=== PATIENT | male | born 1975 | race Caucasian/White ===

== ENCOUNTER 2018-12-16 15:07 | Emergency (ER) | payer MEDICAID ==
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
[2018-12-16] MEDS ORDERED: HYDROCODONE/APAP 7.5/325MG TABLET PO ONE (15:59)
== END 2018-12-16 16:11 | disposition home or self-care (01) ==
LOC: ER 15:07
DX: S61.211A Laceration without foreign body of left index finger without damage to nail, initial encounter (principal); W26.0XXA Contact with knife, initial encounter; Y92.009 Unspecified place in unspecified non-institutional (private) residence as the place of occurrence of the external cause
CPT/HCPCS: 99283